=== PATIENT | female | born 1990 | race Two or more races ===

== ENCOUNTER 2018-08-11 13:11 | Inpatient (IN) | payer OTHER ==
[~2018-08-11] VITALS: Ht 152.4 cm; Wt 99.5 kg
[2018-08-14] MEDS ORDERED: OXYTOCIN 30U/ 0.9% NaCL 500ML 500 ML IV ONE (05:03)
[2018-08-14] MEDS ORDERED: FENTANYL PF 100 MCG/2ML IV PRN (05:30)
[2018-08-14] MEDS ORDERED: SODIUM CITRATE/CITRIC ACID 15 ML UDC PO PRN (05:30)
[2018-08-14] MEDS ORDERED: FENTANYL PF 100 MCG/2ML IVPush PRN (05:30)
[2018-08-14] MEDS ORDERED: TERBUTALINE 1 MG/ML, 1ML IVPush PRN (05:30)
[2018-08-14] MEDS ORDERED: ONDANSETRON 2MG/ML, 2ML IVPush PRN (05:30)
[2018-08-14] MEDS ORDERED: METOCLOPRAMIDE 5 MG/ML, 2ML IVPush PRN (05:30)
[2018-08-14] MEDS ORDERED: NEWBORN KIT ONE (05:40)
[2018-08-14] MEDS ORDERED: OXYTOCIN 30U/ 0.9% NaCL 500ML 500 ML ONE (05:55)
[2018-08-14 06:25] LABS: BASOPHILS # (AUTO) 0.04 x10^3/uL (0-0.1); BASOPHILS % (AUTO) 1 % (0-1); EOSINOPHILS # (AUTO) 0.17 x10^3/uL (0-0.4); EOSINOPHILS % (AUTO) 2 % (1-7); LYMPHOCYTES # (AUTO) 2.48 x10^3/uL (1-3.4); LYMPHOCYTES % (AUTO) 28 % (22-44); MD NO; MEAN CORPUSCULAR HEMOGLOBIN 28.2 pg (27.0-34.8); MEAN CORPUSCULAR HGB CONC 32.5 g/dL (32.4-35.8); MEAN CORPUSCULAR VOLUME 86.8 fL (80-100); MEAN PLATELET VOLUME 8.4 fL (7.4-10.4); MONOCYTES # (AUTO) 0.63 x10^3/uL (0.2-0.8); MONOCYTES % (AUTO) 7 % (2-9); NEUTROPHILS # (AUTO) 5.59 x10^3/uL (1.8-6.8); NEUTROPHILS % (AUTO) 63 % (42-75); PLATELET COUNT 321 x10^3/uL (130-400); RED BLOOD COUNT 3.83 x10^6/uL (3.82-5.3)
[2018-08-14 06:35] VITALS: BP 110/73
[2018-08-14] MEDS ORDERED: OXYTOCIN 30U/ 0.9% NaCL 500ML 500 ML IV PRN (06:53)
[2018-08-14] MEDS ORDERED: FENTANYL/BUPIV./NS/PF 250 ML EPIDCONT SCH ×2 (07:28→10:29)
[2018-08-14] MEDS: LACTATED RINGERS 1,000 ML IV SCH ×2 (09:38→14:07)
[2018-08-14] MEDS ORDERED: LACTATED RINGERS 1,000 ML IV SCH (10:29)
[2018-08-14] MEDS ORDERED: NALOXONE 0.4 MG/ML, 1ML IVPush PRN (10:30)
[2018-08-14] MEDS ORDERED: EPHEDRINE 50 MG/ML, 1ML IVPush PRN (10:30)
[2018-08-14] MEDS ORDERED: LACTATED RINGERS 1,000 ML IVBOLUS PRN (10:30)
[2018-08-14] MEDS: D5%-LACTATED RINGERS 1,000 ML IV SCH ×2 (17:18→21:11)
[2018-08-14] MEDS ORDERED: ACETAMINOPHEN 325 MG TABLET ONE ×2 (17:19→23:56)
[2018-08-14] MEDS ORDERED: ACETAMINOPHEN 325 MG TABLET PO PRN (17:30)
[2018-08-14] MEDS ORDERED: ACETAMINOPHEN 325 MG TABLET PO ONE (17:30)
[2018-08-14] MEDS ORDERED: ONDANSETRON 2MG/ML, 2ML ONE (19:03)
[2018-08-14 20:17] VITALS: BP 117/72
[2018-08-14] MEDS ORDERED: METOCLOPRAMIDE 5 MG/ML, 2ML ONE (21:16)
[2018-08-14] MEDS ORDERED: SODIUM CITRATE/CITRIC ACID 15 ML UDC ONE (21:17)
[2018-08-15] MEDS ORDERED: CEFAZOLIN 2,000 MG in SODIUM CHLORIDE 0.9% 50 ML IV SCH (01:44)
[2018-08-15] MEDS ORDERED: OXYTOCIN 30U/ 0.9% NaCL 500ML 500 ML ONE (03:12)
[2018-08-15] MEDS ORDERED: BISACODYL 10 MG SUPP PR PRN (03:30)
[2018-08-15] MEDS ORDERED: ONDANSETRON 2MG/ML, 2ML IV PRN (03:30)
[2018-08-15] MEDS ORDERED: OXYcodone/APAP 5/325MG TABLET PO PRN (03:30)
[2018-08-15] MEDS ORDERED: METOCLOPRAMIDE 5 MG/ML, 2ML IV PRN (03:30)
[2018-08-15] MEDS ORDERED: MISOPROSTOL 200 MCG TABLET PR PRN ×2 (03:30)
[2018-08-15] MEDS ORDERED: GLYCERIN ADULT SUPP PR PRN (03:30)
[2018-08-15] MEDS ORDERED: MISOPROSTOL 200 MCG TABLET PO PRN (03:30)
[2018-08-15] MEDS ORDERED: MAGNESIUM HYDROXIDE 8%, 30ML UDC PO PRN (03:30)
[2018-08-15] MEDS ORDERED: DIPH,PERTUSS(ACELL),TET VAC/PF NC IM-VACC PRN (03:30)
[2018-08-15] MEDS ORDERED: ACETAMINOPHEN 325 MG TABLET PO PRN ×3 (03:30)
[2018-08-15 04:27] VITALS: BP 113/74
[2018-08-15] MEDS: OXYTOCIN 30U/ 0.9% NaCL 500ML 500 ML IV SCH ×3 (04:45→23:19)
[2018-08-15] MEDS: OXYcodone/APAP 5/325MG TABLET PO PRN ×3 (05:06→17:47)
[2018-08-15 07:20] VITALS: BP 101/65
[2018-08-15] MEDS ORDERED: IBUPROFEN 600 MG TABLET ONE (09:58)
[2018-08-15] MEDS: IBUPROFEN 600 MG TABLET PO PRN ×2 (10:08→17:47)
[2018-08-15] MEDS: PRENATAL VIT/IRON/FA 1 EACH TABLET PO SCH (10:08)
[2018-08-15] MEDS: DOCUSATE 100 MG CAPSULE PO PRN (10:08)
[2018-08-15] MEDS: CEFAZOLIN 2,000 MG in SODIUM CHLORIDE 0.9% 50 ML IV SCH ×2 (10:28→17:47)
[2018-08-15 10:52] LABS: MEAN CORPUSCULAR HEMOGLOBIN 28.4 pg (27.0-34.8); MEAN CORPUSCULAR HGB CONC 32.5 g/dL (32.4-35.8); MEAN CORPUSCULAR VOLUME 87.5 fL (80-100); MEAN PLATELET VOLUME 7.7 fL (7.4-10.4); PLATELET COUNT 275 x10^3/uL (130-400); RED BLOOD COUNT 3.76 x10^6/uL (3.82-5.3); RED CELL DISTRIBUTION WIDTH 15.2 % (9.6-15.2)
[2018-08-15 11:31] LABS: MD YES
[2018-08-15 11:32] LABS: BAND#(MANUAL) 4.58 x10^3/uL; BANDS%(MANUAL) 20 % (0-7); EOS#(MANUAL) 0.23 x10^3/uL (0.0-0.4); EOS% (MANUAL) 1 % (1-7); LYMPH#(MANUAL) 2.06 x10^3/uL (1-3.4); LYMPHS% (MANUAL) 9 % (22-44); MONOS#(MANUAL) 0.69 x10^3/uL (0.3-2.7); MONOS% (MANUAL) 3 % (2-9); SEG#(MANUAL) 15.34 x10^3/uL (1.8-6.8); SEGS% (MANUAL) 67 % (42-75)
[2018-08-15 11:33] LABS: <RBC MORPHOLOGY> NORMAL
[2018-08-15 11:34] LABS: <PLATELET ESTIMATE> ADEQUATE; <PLT MORPHOLOGY> NORMAL PLT MORPH
[2018-08-15 11:43] VITALS: BP 103/68
[2018-08-15 17:40] VITALS: BP 101/64
[2018-08-15 19:00] VITALS: BP 103/64
[2018-08-16] MEDS: OXYcodone/APAP 5/325MG TABLET PO PRN (00:06)
[2018-08-16] MEDS: DOCUSATE 100 MG CAPSULE PO PRN ×2 (00:06→08:04)
[2018-08-16] MEDS: IBUPROFEN 600 MG TABLET PO PRN ×2 (00:06→08:04)
[2018-08-16 00:10] VITALS: BP 99/59
[2018-08-16] MEDS: CEFAZOLIN 2,000 MG in SODIUM CHLORIDE 0.9% 50 ML IV SCH (01:48)
[2018-08-16] MEDS ORDERED: MEASLES,MUMPS&RUBELLA VACC/PF 0.5 ML SQ-VACC ONE ×2 (07:00→14:40)
[2018-08-16] MEDS: PRENATAL VIT/IRON/FA 1 EACH TABLET PO SCH (08:04)
[2018-08-16 08:40] VITALS: BP 112/76
[2018-08-16] MEDS ORDERED: IBUP-1222 PO (11:40)
[2018-08-16] MEDS ORDERED: SENN-88 PO (11:42)
== END 2018-08-16 16:20 | disposition home or self-care (01) | DRG 807 ==
LOC: LDIP 08-14 04:58 → 2NW 08-15 04:19
PROVIDERS: ADMIT Obstetrics & Gynecology; ATTEND Obstetrics & Gynecology
PROC: 10E0XZZ Delivery of Products of Conception, External Approach (ICD-10-PCS; principal; 2018-08-15)
PROC: 0KQM0ZZ Repair Perineum Muscle, Open Approach (ICD-10-PCS; 2018-08-15)
PROC: 10907ZC Drainage of Amniotic Fluid, Therapeutic from Products of Conception, Via Natural or Artificial Opening (ICD-10-PCS; 2018-08-15)
PROC: 3E033VJ Introduction of Other Hormone into Peripheral Vein, Percutaneous Approach (ICD-10-PCS; 2018-08-15)
PROC: 00HU33Z Insertion of Infusion Device into Spinal Canal, Percutaneous Approach (ICD-10-PCS; 2018-08-15)
PROC: 3E0R3BZ Introduction of Anesthetic Agent into Spinal Canal, Percutaneous Approach (ICD-10-PCS; 2018-08-15)
DX: O99.214 Obesity complicating childbirth (principal); Z37.0 Single live birth; E66.01 Morbid (severe) obesity due to excess calories; O77.0 Labor and delivery complicated by meconium in amniotic fluid; O99.02 Anemia complicating childbirth; O70.1 Second degree perineal laceration during delivery; Z3A.40 40 weeks gestation of pregnancy; D64.9 Anemia, unspecified; Z88.8 Allergy status to other drugs, medicaments and biological substances
CPT/HCPCS: 36415; J7121; 82803; 85025; 86850; 86900; 90715; G0378; J0690; J2405; J2590; J3010; J7120

== ENCOUNTER → 2019-11-29 | Outpatient (CLI) | payer OTHER ==
[~2019-11-29] MED LIST: IBUP-1222 PO; OXYC5CAP2 PO; SENN-190 PO; SERT50TA PO
== END | disposition home or self-care (01) ==
LOC: STAR 09:24
PROVIDERS: ATTEND Obstetrics & Gynecology
DX: Z01.812 Encounter for preprocedural laboratory examination (principal); Z20.828 Contact with and (suspected) exposure to other viral communicable diseases
CPT/HCPCS: 36415; 87635

== ENCOUNTER 2019-12-04 06:07 | Inpatient (IN) | payer OTHER ==
[~2019-12-04] VITALS: Ht 152.4 cm; Wt 100.0 kg
[~2019-12-04 06:07] MED LIST changes: -SERT50TA PO
[2019-12-04] MEDS ORDERED: MISOPROSTOL 25 MCG TABLET VG PRN (06:30)
[2019-12-04] MEDS ORDERED: FENTANYL PF 100 MCG/2ML IV PRN (06:30)
[2019-12-04] MEDS ORDERED: ONDANSETRON 2MG/ML, 2ML IVPush PRN (06:30)
[2019-12-04] MEDS ORDERED: FENTANYL PF 100 MCG/2ML IVPush PRN (06:30)
[2019-12-04] MEDS ORDERED: OXYTOCIN 30U/ 0.9% NaCL 500ML 500 ML IV PRN ×2 (06:30)
[2019-12-04] MEDS ORDERED: FENTANYL/BUPIV./NS/PF 250 ML EPIDCONT SCH ×2 (06:30→09:30)
[2019-12-04] MEDS ORDERED: EPHEDRINE 50 MG/ML, 1ML IVPush PRN ×2 (06:30→09:30)
[2019-12-04] MEDS ORDERED: TERBUTALINE 1 MG/ML, 1ML IVPush PRN (06:30)
[2019-12-04] MEDS ORDERED: LACTATED RINGERS 1,000 ML IVBOLUS PRN ×2 (06:30→09:30)
[2019-12-04] MEDS ORDERED: TERBUTALINE 1 MG/ML, 1ML SQ PRN (06:30)
[2019-12-04] MEDS ORDERED: LACTATED RINGERS 1,000 ML IV SCH ×3 (06:30→09:30)
[2019-12-04] MEDS ORDERED: OXYTOCIN 30U/ 0.9% NaCL 500ML 500 ML IV ONE (06:30)
[2019-12-04] MEDS ORDERED: D5%-LACTATED RINGERS 1,000 ML IV SCH (06:30)
[2019-12-04 06:51] LABS: BASOPHILS % (AUTO) 0 % (0-1); EOSINOPHILS % (AUTO) 2 % (1-7); LYMPHOCYTES % (AUTO) 27 % (22-44); MEAN CORPUSCULAR HEMOGLOBIN 28.2 pg (27.0-34.8); MEAN CORPUSCULAR HGB CONC 33.1 g/dL (32.4-35.8); MEAN PLATELET VOLUME 8.1 fL (7.4-10.4); MONOCYTES % (AUTO) 9 % (2-9); NEUTROPHILS % (AUTO) 62 % (42-75); PLATELET COUNT 317 x10^3/uL (130-400); RED BLOOD COUNT 3.99 x10^6/uL (3.82-5.3)
[2019-12-04] MEDS ORDERED: OXYTOCIN 30U/ 0.9% NaCL 500ML 500 ML ONE ×2 (07:02→21:25)
[2019-12-04 07:15] LABS: MD NO
[2019-12-04] MEDS ORDERED: SERT50TA PO (07:34)
[2019-12-04] MEDS ORDERED: NEWBORN KIT ONE (07:56)
[2019-12-04] MEDS ORDERED: MISOPROSTOL 200 MCG TABLET ONE (07:57)
[2019-12-04] MEDS ORDERED: LIDOCAINE 1%, 20ML ONE (07:57)
[2019-12-04] MEDS ORDERED: FENTANYL/BUPIV./NS/PF 250 ML EPIDCONT ONE (09:17)
[2019-12-04] MEDS ORDERED: BUPIVACAINE 0.25% ONE (09:17)
[2019-12-04] MEDS ORDERED: NALOXONE 0.4 MG/ML, 1ML IVPush PRN (09:30)
[2019-12-04] MEDS ORDERED: ACETAMINOPHEN 500 MG TABLET ONE ×2 (12:13→19:11)
[2019-12-04] MEDS ORDERED: ONDANSETRON 2MG/ML, 2ML ONE (12:14)
[2019-12-04] MEDS: ACETAMINOPHEN 500 MG TABLET PO PRN ×2 (12:21→19:13)
[2019-12-04 19:10] VITALS: BP 130/78
[2019-12-04] MEDS ORDERED: SERTRALINE 50MG TABLET PO SCH (21:00)
[2019-12-04] MEDS ORDERED: IBUPROFEN 600 MG TABLET ONE (21:16)
[2019-12-04] MEDS: IBUPROFEN 600 MG TABLET PO PRN (21:21)
[2019-12-04] MEDS: OXYTOCIN 30U/ 0.9% NaCL 500ML 500 ML IV SCH (21:27)
[2019-12-04] MEDS ORDERED: ACETAMINOPHEN 325 MG TABLET PO PRN ×2 (21:30)
[2019-12-04] MEDS ORDERED: METHYLERGONOVINE 0.2 MG/ML IM PRN ×2 (21:30)
[2019-12-04] MEDS ORDERED: IBUPROFEN 600 MG TABLET PO PRN (21:30)
[2019-12-04] MEDS ORDERED: OXYcodone/APAP 5/325MG TABLET PO PRN (21:30)
[2019-12-04] MEDS ORDERED: DOCUSATE 100 MG CAPSULE PO PRN ×2 (21:30)
[2019-12-04] MEDS ORDERED: OXYTOCIN 30U/ 0.9% NaCL 500ML 500 ML IV SCH ×2 (21:30)
[2019-12-04] MEDS ORDERED: MISOPROSTOL 200 MCG TABLET PR PRN ×2 (21:30)
[2019-12-04] MEDS ORDERED: ONDANSETRON 2MG/ML, 2ML IV PRN ×2 (21:30)
[2019-12-04] MEDS ORDERED: SIMETHICONE 80 MG CHEW TAB PO PRN ×3 (21:30)
[2019-12-04] MEDS ORDERED: CARBOPROST TROMETHAMINE 250 MCG/ML, 1ML IM PRN ×2 (21:30)
[2019-12-04] MEDS ORDERED: METHYLERGONOVINE 0.2 MG/ML IM ONE (22:34)
[2019-12-04 23:45] VITALS: BP 122/76
[2019-12-05 04:00] VITALS: BP 118/72
[2019-12-05 04:33] LABS: BASOPHILS % (AUTO) 0 % (0-1); EOSINOPHILS % (AUTO) 0 % (1-7); LYMPHOCYTES % (AUTO) 14 % (22-44); MEAN CORPUSCULAR HEMOGLOBIN 28.2 pg (27.0-34.8); MEAN CORPUSCULAR HGB CONC 32.9 g/dL (32.4-35.8); MEAN PLATELET VOLUME 8.2 fL (7.4-10.4); MONOCYTES % (AUTO) 8 % (2-9); NEUTROPHILS % (AUTO) 78 % (42-75); PLATELET COUNT 276 x10^3/uL (130-400); RED BLOOD COUNT 3.93 x10^6/uL (3.82-5.3)
[2019-12-05 04:35] LABS: MD NO
[2019-12-05] MEDS: OXYTOCIN 30U/ 0.9% NaCL 500ML 500 ML IV SCH ×2 (07:30→17:30)
[2019-12-05 07:40] VITALS: BP 118/76
[2019-12-05] MEDS ORDERED: PRENATAL VIT/IRON/FA 1 EACH TABLET PO SCH ×2 (09:00)
[2019-12-05] MEDS: PRENATAL VIT/IRON/FA 1 EACH TABLET PO SCH (09:14)
[2019-12-05] MEDS: DOCUSATE 100 MG CAPSULE PO PRN ×2 (09:14→21:58)
[2019-12-05] MEDS: IBUPROFEN 600 MG TABLET PO PRN ×3 (09:15→21:58)
[2019-12-05] MEDS: OXYcodone/APAP 5/325MG TABLET PO PRN ×3 (10:17→21:59)
[2019-12-05 12:30] VITALS: BP 107/70
[2019-12-05 16:30] VITALS: BP 120/84
[2019-12-05 20:00] VITALS: BP 125/83
[2019-12-05] MEDS ORDERED: SERTRALINE 100MG TABLET PO SCH (21:00)
[2019-12-06] MEDS: OXYTOCIN 30U/ 0.9% NaCL 500ML 500 ML IV SCH (03:30)
[2019-12-06] MEDS: IBUPROFEN 600 MG TABLET PO PRN ×2 (03:47→12:08)
[2019-12-06] MEDS: OXYcodone/APAP 5/325MG TABLET PO PRN ×3 (03:47→12:09)
[2019-12-06] MEDS: DOCUSATE 100 MG CAPSULE PO PRN (08:06)
[2019-12-06] MEDS: PRENATAL VIT/IRON/FA 1 EACH TABLET PO SCH (08:06)
[2019-12-06 08:10] VITALS: BP 110/71
[2019-12-06] MEDS ORDERED: IBUP-1222 PO ×2 (14:01→14:06)
[2019-12-06] MEDS ORDERED: DOCU-131 PO (14:02)
[2019-12-06] MEDS ORDERED: SERT100T PO (14:03)
[2019-12-06] MEDS ORDERED: OXYC-302 PO (14:05)
== END 2019-12-06 15:00 | disposition home or self-care (01) | DRG 806 ==
LOC: LDIP 06:07 → 2NW 23:17
PROVIDERS: ADMIT Obstetrics & Gynecology; ATTEND Obstetrics & Gynecology
PROC: 10E0XZZ Delivery of Products of Conception, External Approach (ICD-10-PCS; principal; 2019-12-04)
PROC: 0HQ9XZZ Repair Perineum Skin, External Approach (ICD-10-PCS; 2019-12-04)
PROC: 10907ZC Drainage of Amniotic Fluid, Therapeutic from Products of Conception, Via Natural or Artificial Opening (ICD-10-PCS; 2019-12-04)
PROC: 3E0R3BZ Introduction of Anesthetic Agent into Spinal Canal, Percutaneous Approach (ICD-10-PCS; 2019-12-04)
PROC: 00HU33Z Insertion of Infusion Device into Spinal Canal, Percutaneous Approach (ICD-10-PCS; 2019-12-04)
DX: O69.81X0 Labor and delivery complicated by cord around neck, without compression, not applicable or unspecified (principal); N13.4 Hydroureter; Z37.0 Single live birth; N13.39 Other hydronephrosis; O98.82 Other maternal infectious and parasitic diseases complicating childbirth; E66.01 Morbid (severe) obesity due to excess calories; O99.214 Obesity complicating childbirth; F32.9 Major depressive disorder, single episode, unspecified; O99.344 Other mental disorders complicating childbirth; Z3A.39 39 weeks gestation of pregnancy; O70.0 First degree perineal laceration during delivery; O99.892 Other specified diseases and conditions complicating childbirth
CPT/HCPCS: 36415; 85025; 86592; 86850; 86900; G0378; J2405; J2210; J2590; J3010; J7120